=== PATIENT | female | born 1995 | race Caucasian/White ===

== ENCOUNTER → 2024-06-02 | Outpatient (CLI) | payer SELFPAY, OTHER ==
--- NOTE | 2024-06-02 10:25 | US_ITS ---
PROCEDURE: EXT NON VASC LIMITED/SOFT TISS REASON FOR EXAM: 2 palpable lumps in the right 4th digit. TECHNIQUE: Ultrasound imaging of right 4th digit was obtained.. COMPARISON: None. FINDINGS: Targeted sonogram of the right 4th digit demonstrates a 5 mm x 4 mm x 5 mm hypoechoic well-defined nodular density along the medial palmar side. There is also evidence of a similar-appearing hypoechoic nodule measuring 7 mm x 6 mm x 5 mm along the lateral ulnar site. These most likely represent ganglion cysts. US/Ext Non Vasc Limited/Soft Tiss IMPRESSION: Findings suggestive of 2 ganglion cysts along the 4th digit 1 on the medial pal mar side and the 2nd on the lateral ulnar side. Reading Location: [facility]
--- NOTE | 2024-06-02 10:50 | RAD_ITS ---
PROCEDURE: FINGER(S) MIN 2 VIEWS REASON FOR EXAM: Cyst TECHNIQUE: 3 view(s) of the right 4th digit COMPARISON: None FINDINGS: No visible fracture. Normal alignment. Soft tissues are unremarkable. RAD/Finger(s) Min 2 Views IMPRESSION: No acute osseous abnormality in the right 4th digit Reading Location: [facility]
== END | disposition home or self-care (01) ==
LOC: US 10:23
PROVIDERS: PCP Nurse Practitioner Family; Referring Provider Surgery Plastic and Reconstructive Surgery; Visit Provider Surgery Plastic and Reconstructive Surgery
DX: M67.441 Ganglion, right hand (principal)
CPT/HCPCS: 73140; 76882